=== PATIENT | female | born 2005 | race Caucasian/White ===

== ENCOUNTER 2025-02-22 18:29 | Emergency (ER) | payer MEDICAID, SELFPAY ==
[2025-02-22 18:31] VITALS: BMI 59.5
[2025-02-22 18:55] VITALS: BP 137/95; PULSE 98; RESP 18; TEMP 36.8; O2SAT 97
--- NOTE | 2025-02-22 19:02 | EDNOTE_ITS ---
Nausea/Vomit./Diarrhea-RME/HPI General Chief complaint: Nausea/Vomiting/Diarrhea Stated complaint: VOMITING AND DIZZINESS AFTER WEGOVY SHOT Time Seen by Provider: 02/22/25 18:58 Source: patient, RN notes reviewed and old records reviewed Arrival date/time: 02/22/25 18:29 Mode of arrival: ambulatory Limitations: no limitations RME / HPI RME / HPI Narrative: 20yof presents to the ED for multiple episodes of nausea and vomiting that initiated overnight. Patient reports injecting 1.7mg of Wegovy yesterday after not using medication for the past 4-5 months. Reports dizziness 2/2 vomiting. No fever, diarrhea, urinary symptoms, headache or syncope reported. Patient took a single zofran overnight with minimal relief. Related Data Home Medications ?Medication ?Instructions ?Recorded ?Confirmed levothyroxine 25 mcg capsule 25 mcg PO QDAY 06/29/18 1 08/30/17 Previous Rx's ?Medication ?Instructions ?Recorded hydrocodone 5 mg-acetaminophen 325 1 tab PO QID PRN pa in #20 tabs 06/29/18 mg tablet ibuprofen 400 mg tablet 400 mg PO BID PRN pain #30 t abs 06/29/18 ibuprofen 800 mg tablet 800 mg PO Q6H PRN pain #30 t abs 03/06/19 fluconazole 150 mg tablet 150 mg PO .x1 #1 tab 2 (Diflucan) ondansetron 4 mg disintegrating 4 mg PO Q8H PRN nausea and 11/19/22 tablet vomiting #15 tabs metoclopramide HCl 10 mg tablet 10 mg PO Q6H PRN nause a and 02/22/25 (Reglan) vomiting #20 tabs Allergies Allergy/AdvReac Type Severity Reaction Status Date / Time No Known Allergies Allergy Verified 02/22/25 18:30 Review of Systems Review of Systems Systems Reviewed: All systems reviewed, normal except as documented Constitutional Constitutional: Denies chills, Denies fever(s) and Denies headache(s) ENT Ears, Nose, Mouth, and Throat: Reports dizziness and Denies headache(s) Gastrointestinal Gastrointestinal: Reports abdominal pain, Denies loose stools, Reports nausea and Reports vomiting Neurologic Neurologic: Reports dizziness and Denies headache(s) Past Medical History Past Medical History GASTROINTESTINAL: Positive Obesity Surgical History OTHER SURGICAL HX: RLE, left elbow ortho surgeries Social History SMOKING STATUS: Former smoker SUBSTANCE USE: does not use ALCOHOL: Current (social) ED Exam General Limitations: Present no limitations General appearance: Present alert, in no apparent distress and obese Head Head exam: Present atraumatic and normocephalic Eye Eye exam: Present normal appearance, PERRL and EOMI ENT ENT exam: Present normal exam and mucous membranes moist Neck Neck exam: Present normal inspection and full ROM Chest Chest inspection: Present normal inspection and symmetric chest wall rise Respiratory Respiratory exam: Present normal lung sounds bilaterally; Absent respiratory distress Cardiovascular Cardiovascular exam: Present regular rate and normal rhythm Abdominal Exam Abdominal exam: Present soft; Absent distention, tenderness, guarding or rebound Extremities Exam Extremities exam: Present normal inspection and full ROM Neurological Exam Neurological exam: Present alert and oriented X3 Psychiatric Psychiatric exam: Present normal affect and normal mood Skin Skin exam: Present warm, dry, intact and normal color Course Quality Measures none Orders Category Date Time Status Insert IV NOW Care 02/22/25 20:32 Completed CBC Stat Lab 02/22/25 19:35 Completed CMP [Comprehensive Metabolic Panel] Stat Lab 02/22/25 19:35 Completed HCG,Qualitative Serum Stat Lab 02/22/25 19:35 Completed Lipase Stat Lab 02/22/25 19:35 Completed Ketorolac Inj [Toradol Inj] Med 02/22/25 19:02 Discontinued 30 mg IVP X1 ONE Metoclopramide Inj [Reglan Inj] Med 02/22/25 19:01 Discontinued 10 mg IVP X1 ONE Sodium Chloride 0.9% 1000 ml [Ns] 1,000 ml Med 02/22/25 19:01 Discontinued IV 999 mls/hr Vital Signs Vital signs: Vital Signs Temperature 98.2 F 02/22/25 18:55 Pulse Rate 98 02/22/25 18:55 Respiratory Rate 18 02/22/25 18:55 Blood Pressure 137/95 H 02/22/25 18:55 Pulse Oximetry (%) 97 02/22/25 18:55 Oxygen Delivery Method Room Air 02/22/25 18:55 Nausea/Vomiting/Diarrhea MDM Narrative MDM Narrative:: 20yof presents to the ED for multiple episodes of nausea and vomiting that initiated overnight. Patient reports injecting 1.7mg of Wegovy yesterday after not using medication for the past 4-5 months. Reports dizziness 2/2 vomiting. No fever, diarrhea, urinary symptoms, headache or syncope reported. Patient took a single zofran overnight with minimal relief. Patient reassessed. She is feeling better, symptoms improved, tolerating po. Labs and exam reassuring. Suspect nausea/vomiting is side effect of GLP1. E ncouraged adequate fluids, symptomatic treatment prn. Stable for discharge, RT ED precautions given. Patient data External records reviewed:: [facility] previous records (11/19/22 ED visit for gastroenteritis) Clinical information provided by:: patient and parent Social determinants that could affect healthcare access:: none Patient has the following chronic illnesses:: obesity How is presenting disease/condition affected by chronic disease/condition?: caused by Evaluation data The following diagnostics were reviewed and interpreted by me:: lab results Lab and/or radiology exams considered but not ordered:: CT abd/pelvis: benign abdomen on exam Interpretation Summary: no leukocytosis hcg negative LFTs and lipase wnl Medications / Prescriptions Medications / Prescriptions considered but not ordered:: no antibiotics recommended at this time Medication administrations:: Medication Administration History Discontinued Medications Sodium Chloride (Ns) 1,000 mls @ 999 mls/hr IV .Q1H1M ONE Stop: 02/22/25 20:01 Last Infusion: 02/22/25 21:48 Dose: Infused Documented By: Admin: 02/22/25 20:33 Dose: 999 mls/hr Documented By: RAMIRO Ketorolac Tromethamine (Ketorolac Inj 30 Mg/Ml Vial) 30 mg IVP X1 ONE Stop: 02/22/25 19:03 Last Admin: 02/22/25 20:35 Dose: 30 mg Documented By: RAMIRO Metoclopramide HCl (Metoclopramide Inj 5 Mg/Ml Vial 2 Ml) 10 mg IVP X1 ONE; Protocol Stop: 02/22/25 19:02 Last Admin: 02/22/25 20:33 Dose: 10 mg Documented By: RAMIRO above medications administered in ED Consultations Consultation(s) initiated? (list below): No Diagnosis Nausea Differential Diagnosis: other (vomiting, gastroenteritis, dehydration, electrolyte imbalance, CHS, HG) Most likely diagnosis given after review of the tests above:: Nausea and vomiting, medication side effect Admission Indicated Admission indicated?: not indicated Admission Request Was there a request for admission?: No Disposition Plan Disposition Plan: Discharge Discharge Attestation Discharge Attestation: The patient and all family members were given an opportunity to ask questions and understood the discharge instructions. Discharge instructions specifically effects, indications for sooner follow up or return to the emergency department, and the expected course of current diagnosis. Patient condition: Stable Discharge Plan Plan Patient Disposition: HOME (Self Care) Patient condition on transfer: Stable Prescriptions/Referrals Prescriptions/Med Rec: New metoclopramide HCl [Reglan] 10 mg tablet 10 mg PO Q6H PRN (Reason: nausea and vomiting) Qty: 20 0RF No Action ibuprofen 800 mg tablet 800 mg PO Q6H PRN (Reason: pain) Qty: 30 0RF levothyroxine 25 mcg Capsule 25 mcg PO QDAY hydrocodone-acetaminophen 5-325 mg tablet 1 tab PO QID MDD 25 mg Daily PRN (Reason: pain) Qty: 20 0RF ibuprofen 400 mg tablet 400 mg PO BID MDD 1600 PRN (Reason: pain) Qty: 30 0RF fluconazole [Diflucan] 150 mg tablet 150 mg PO .x1 Qty: 1 0RF Rx Instructions: Take 1 dose in 72 hours from now. ondansetron 4 mg tablet,disintegrating 4 mg PO Q8H PRN (Reason: nausea and vomiting) Qty: 15 0RF Problem List Clinical Impression: Nausea and vomiting, Medication side effect Patient/Caregiver Discharge Instructions Education Materials: ED Vomiting (Adult) Print Language: Persian Stand Alone Forms: [place] Award Info., Work/School Release, Patient Portal Info Letter PA/PLANT ASSOCIATE Supervising Physician PA/PLANT ASSOCIATE Supervising Physician: Santana
[2025-02-22 19:51] LABS: Basophils # (Auto) 0.0 Thou/mm3 (0.0-0.2); Basophils % (Auto) 0 % (0-2.5); Eosinophils # (Auto) 0.0 Thou/mm3 (0.0-0.5); Eosinophils % (Auto) 0 % (0-10); Hematocrit 40.3 % (36.0-46.0); Hemoglobin 13.1 g/dL (12.0-16.0); Immature Granulocytes Auto 0.02 Thou/mm3 (0.00-0.00); Lymphocytes # (Auto) 1.8 Thou/mm3 (1.0-4.8); Lymphocytes % (Auto) 18 % (10-50); Mean Corpuscular HGB Conc 32.5 g/dl (31.0-37.0); Mean Corpuscular Hemoglobin 26.6 pg (25.0-35.0); Mean Corpuscular Volume 82 fL (80-100); Monocytes # (Auto) 0.6 Thou/mm3 (0.0-0.8); Monocytes % (Auto) 6 % (0-12); Neutrophils # (Auto) 7.5 Thou/mm3 (1.8-7.7); Neutrophils % (Auto) 75 % (37-80); Nucleated Red Blood Cell # 0.00 Thou/mm3 (0.00-0.00); Nucleated Red Blood Cell % 0 /100 WBC (0); Platelet Count 358 Thou/mm3 (140-440); RDW Standard Deviation 41.9 fL (36.4-46.3); Red Blood Count 4.92 Miln/mm3 (4.00-5.20); White Blood Count 10.0 Thou/mm3 (3.6-11.0)
[2025-02-22 20:07] LABS: HCG,Qualitative Serum Negative
[2025-02-22] MEDS: SODIUM CHLORIDE 0.9% 1000 ML 1,000 ML 999 ML IV (20:33)
[2025-02-22] MEDS: METOCLOPRAMIDE INJ 5 MG/ML VIAL 2 ML 10 MG IVP (20:33)
[2025-02-22] MEDS: KETOROLAC INJ 30 MG/ML VIAL IVP (20:35)
[2025-02-22 22:19] LABS: Alanine Aminotransferase 14 U/L (10-49); Albumin, Serum 4.7 gm/dL (3.5-5.0); Albumin/Globulin Ratio 1.7 (1.2-2.2); Alkaline Phosphatase 71 U/L (46-116); Anion Gap 12 (7-16); Aspartate Amino Transferase 15 U/L (0-34); BUN/Creatinine Ratio 10 Ratio (12-20); Bilirubin,Total 0.7 mg/dL (0.3-1.2); Blood Urea Nitrogen 8 mg/dL (9-23); Calcium 9.8 mg/dL (8.3-10.6); Calcium (Corrected) 9.8 mg/dL (8.5-10.1); Carbon Dioxide 23.5 mMol/L (20.0-31.0); Chloride 101 mMol/L (98-107); Creatinine (Component) 0.8 mg/dL (0.6-1.3); Estimated Creatinine Clearance 186.0 mL/min (>60); Globulin 2.8 gm/dL (2.3-3.5); Glucose 75 mg/dL (74-106); Lipase 30 U/L (12-53); Osmolality,Calculated 269 (275-295); Potassium 3.5 mMol/L (3.4-5.1); Sodium 136 mMol/L (136-145); Total Protein 7.5 gm/dL (5.7-8.2); eGFR > 60 See Note
== END 2025-02-22 23:55 | disposition home or self-care (01) ==
LOC: SERX 02-23 00:20
PROVIDERS: Physician Assistant; Emergency Provider Emergency Medicine
DX: R11.2 Nausea with vomiting, unspecified (principal); T38.3X5A Adverse effect of insulin and oral hypoglycemic [antidiabetic] drugs, initial encounter; E66.9 Obesity, unspecified; Z68.43 Body mass index [BMI] 50.0-59.9, adult; Z87.891 Personal history of nicotine dependence
CPT/HCPCS: 36415; 80053; 83690; 84703; 85025; 96361; 96374; 96375; 99283; J1885; J2765; J7030